=== PATIENT | male | born 1935 | race Caucasian/White ===

== ENCOUNTER 2021-07-14 18:05 | Outpatient (CLI) | payer MEDICARE, OTHER | END 2021-07-14 18:06 | disposition critical access hospital (66) | LOC: EMS 18:05 | DX: R42 Dizziness and giddiness (principal); R40.0 Somnolence | CPT/HCPCS: A0425; A0429 ==

== ENCOUNTER 2021-07-14 18:17 | Inpatient (IN) | payer MEDICARE, OTHER ==
[2021-07-14] MEDS ORDERED: ACETAMINOPHEN 325 MG TABLET PO STA (18:37)
--- NOTE | 2021-07-14 18:47 | ED Physician Documentation ---
History of Present Illness - Stated complaint Stated Complaint: DIZZINESS - Chief complaint Chief Complaint: Fever - History obtained from History obtained from: Patient, Family - Additonal information Additional information: 86-year-old gentleman who is generally healthy save a bad eye and narcolepsy. Had [employer] Covid vaccine about 5 weeks ago. Says he has been dizzy for maybe a week. says he has been very lethargic since yesterday. They did not know he was running a fever. He denies cough or shortness of breath. Review of Systems Ten Systems: 10 systems reviewed and negative Constitutional: reports: Chills, Myalgias Respiratory: denies: Dyspnea Neurologic: reports: Headache PD PAST MEDICAL HISTORY - Present Medications Home Medications: Ambulatory Orders Medication Instructions Recorded Confirmed Home Medications Unobtainable 07/14/21 07/14/21 [HOME MEDICATIONS UNOBTAINABLE] - Allergies Allergies/Adverse Reactions: Allergies Allergy/AdvReac Type Severity Reaction Status Date / Time No Known Drug Allergies Allergy Verified 07/14/21 18:32 PD ED PE NORMAL - Vitals Vital signs reviewed: Yes - General General: Alert and oriented X 3, No acute distress - HEENT HEENT: PERRL, EOMI - Neck Neck: Supple, no meningeal sign, No bony TTP - Cardiac Cardiac: RRR, No murmur - Respiratory Respiratory: No respiratory distress, Other (Rhonchorous at the right base, noted to be hypoxic) - Abdomen Abdomen: Non tender - Back Back: No CVA TTP, No spinal TTP - Derm Derm: Normal color, No rash - Extremities Extremities: No edema, No calf tenderness / cord - Neuro Neuro: Alert and oriented X 3, Normal speech Results - Vitals Vitals: Vital Signs - 24 hr 07/14/21 07/14/21 07/14/21 18:26 18:56 19:36 Temperature 39.0 C H 37.1 C Heart Rate 92 91 85 Respiratory 37 H 32 H 21 Rate Blood Pressure 122/80 133/64 H 133/73 H O2 Saturation 88 L 95 97 Oxygen O2 Source Nasal cannula Oxygen Flow Rate 2 - Labs Labs: Laboratory Tests 07/14/21 07/14/21 07/14/21 18:56 18:56 18:56 WBC 14.6 H RBC 3.84 L Hgb 10.9 L Hct 33.2 L MCV 86.5 MCH 28.4 MCHC 32.8 RDW 14.7 Plt Count 178 MPV 8.4 Neut # (Auto) 8.5 H Lymph # (Auto) 4.5 H Dixie # (Auto) 1.5 H Eos # (Auto) 0.0 Baso # (Auto) 0.0 Absolute Nucleated RBC 0.00 Nucleated RBC % 0.0 Sodium 131 L Potassium 3.8 Chloride 94 L Carbon Dioxide 24 Anion Gap 13.0 BUN 34 H Creatinine 1.2 Estimated GFR (MDRD) 58 L Glucose 128 H Lactic Acid 0.9 Calcium 9.1 Total Bilirubin 1.1 H AST 29 ALT 24 Alkaline Phosphatase 59 Total Protein 7.8 Albumin 3.8 Globulin 4.0 Albumin/Globulin Ratio 1.0 Urine Color Urine Clarity Urine pH Ur Specific [place] Urine Protein Urine Glucose (UA) Urine Ketones Urine Occult Blood Urine Nitrite Urine Bilirubin Urine Urobilinogen Ur Leukocyte Esterase Urine RBC Urine WBC Ur Squamous Epith Cells Urine Bacteria Urine Casts Urine Culture Comments Nasal Adenovirus (PCR) Nasal B. parapertussis DNA (PCR) Nasal Coronavir 229E PCR Nasal Coronavir HKU1 PCR Nasal Coronavir NL63 PCR Nasal Coronavir OC43 PCR Nasal Enterovir/Rhinovir PCR Nasal Influenza B PCR Nasal Influenza A PCR Nasal Parainfluen 1 PCR Nasal Parainfluen 2 PCR Nasal Parainfluen 3 PCR Nasal Parainfluen 4 PCR Nasal RSV (PCR) Nasal B.pertussis DNA PCR Nasal C.pneumoniae (PCR) David Human Metapneumo PCR Nasal M.pneumoniae (PCR) Nasal SARS-CoV-2 (PCR) 07/14/21 07/14/21 18:58 19:30 WBC RBC Hgb Hct MCV MCH MCHC RDW Plt Count MPV Neut # (Auto) Lymph # (Auto) [place] # (Auto) Eos # (Auto) Baso # (Auto) Absolute Nucleated RBC Nucleated RBC % Sodium Potassium Chloride Carbon Dioxide Anion Gap BUN Creatinine Estimated GFR (MDRD) Glucose Lactic Acid Calcium Total Bilirubin AST ALT Alkaline Phosphatase Total Protein Albumin Globulin Albumin/Globulin Ratio Urine Color YELLOW Urine Clarity CLEAR Urine pH 5.5 Ur Specific [place] 1.025 Urine Protein 100 H Urine Glucose (UA) NEGATIVE Urine Ketones NEGATIVE Urine Occult Blood TRACE-LYSE Urine Nitrite NEGATIVE Urine Bilirubin NEGATIVE Urine Urobilinogen 0.2 (NORMAL) Ur Leukocyte Esterase NEGATIVE Urine RBC 0-5 Urine WBC 0-3 Ur Squamous Epith Cells NONE SEEN Urine Bacteria None Seen Urine Casts 0-2 Hyaline Casts Urine Culture Comments NOT INDICATED Nasal Adenovirus (PCR) NOT DETECTED Nasal B. parapertussis DNA (PCR) NOT DETECTED Nasal Coronavir 229E PCR NOT DETECTED Nasal Coronavir HKU1 PCR NOT DETECTED Nasal Coronavir NL63 PCR NOT DETECTED Nasal Coronavir OC43 PCR NOT DETECTED Nasal Enterovir/Rhinovir PCR NOT DETECTED Nasal Influenza B PCR NOT DETECTED Nasal Influenza A PCR NOT DETECTED Nasal Parainfluen 1 PCR NOT DETECTED Nasal Parainfluen 2 PCR NOT DETECTED Nasal Parainfluen 3 PCR NOT DETECTED Nasal Parainfluen 4 PCR NOT DETECTED Nasal RSV (PCR) NOT DETECTED Nasal B.pertussis DNA PCR NOT DETECTED Nasal C.pneumoniae (PCR) NOT DETECTED David Human Metapneumo PCR NOT DETECTED Nasal M.pneumoniae (PCR) NOT DETECTED Nasal SARS-CoV-2 (PCR) NOT DETECTED - Rads (name of study) 1v cxr Radiology: EMP read contemporaneously (NAD) PD MEDICAL DECISION MAKING - ED course ED course: Relatively healthy 86-year-old gentleman presents with an acute encephalopathy fever, tachypnea, hypoxemia. Solid blood pressures and hemodynamics though. Clinically sounds like he has pneumonia at the right base. Covid test negative. Chest x-ray clear. Given sepsis physiology will treat as pneumonia, suspect chest x-ray will "bolton" Spoke with Dr. Pendleton for admission at 8:22 PM. He requested change of the antibiotics from Rocephin and Zithromax to Zosyn and Zithromax, based on the clinical location of the pneumonia he was concern for aspiration as opposed to simple community-acquired pneumonia. - Sepsis Event Sepsis Onset Date: 07/14/21 Sepsis Onset Time: 20:16 Current Stage of Sepsis: Sepsis Initial Hypotension: Not hypotensive Possible source of Sepsis: Pulmonary Mental/Cognitive Status: Lethargic, Change from baseline Reason for not giving 30ml/kg crystalloid fluids: Not in septic shock Capillary refill: Less than 2 seconds Peripheral Pulse Strength: 3+ Normal Peripheral Pulse Location: Radial Departure - Departure Disposition: 66 [facility] DC/Xfer Clinical Impression: Septicemia, Pneumonia Condition: Serious
[2021-07-14 19:01] LABS: BASOPHILS % (AUTO) 0.2 %; HCT - HEMATOCRIT 33.2 % (42.0-52.0); HGB - HEMOGLOBIN 10.9 g/dL (14.0-18.0); LYMPHOCYTES # (AUTO) 4.5 10^3/uL (1.5-3.5); LYMPHOCYTES % (AUTO) 30.8 %; MEAN CORPUSCULAR HEMOGLOBIN 28.4 pg (27.0-31.0); MEAN CORPUSCULAR HGB CONC 32.8 g/dL (32.0-36.0); MEAN CORPUSCULAR VOLUME 86.5 fL (80.0-94.0); MEAN PLATELET VOLUME 8.4 fL (7.4-11.4); MONOCYTES # (AUTO) 1.5 10^3/uL (0.0-1.0); MONOCYTES % (AUTO) 9.9 %; NEUTROPHILS # (AUTO) 8.5 10^3/uL (1.5-6.6); NEUTROPHILS % (AUTO) 58.3 %; PLT - PLATELET COUNT 178 10^3/uL (130-450); RED BLOOD COUNT 3.84 10^6/uL (4.70-6.10); RED CELL DISTRIBUTION WIDTH 14.7 % (12.0-15.0); WHITE BLOOD COUNT 14.6 x10^3/uL (4.8-10.8)
[2021-07-14 19:14] LABS: ALBUMIN 3.8 g/dL (3.2-5.5); BILIRUBIN,TOTAL 1.1 mg/dL (0.2-1.0); CALCIUM 9.1 mg/dL (8.5-10.3); CREATININE 1.2 mg/dL (0.6-1.2); POTASSIUM 3.8 mmol/L (3.5-5.0); TOTAL PROTEIN 7.8 g/dL (6.7-8.2)
[2021-07-14] MEDS ORDERED: SODIUM CHLORIDE 0.9% 1,000 ML IV STA (19:14)
--- NOTE | 2021-07-14 19:21 | XRAY Report ---
PROCEDURE: Chest 1 View X-Ray INDICATIONS: Fever TECHNIQUE: One view of the chest was acquired. COMPARISON: None FINDINGS: Surgical changes and devices: None. Lungs and pleura: No pleural effusions or pneumothorax. Lungs are clear. Mediastinum: Mediastinal contours appear normal. Heart size is normal. Bones and chest wall: No suspicious bony lesions. Overlying soft tissues appear unremarkable. IMPRESSION: No acute finding. Reviewed by: Jaspreet Strickland MD on 07/14/2021 7:20 PM PDT Approved by: Jaspreet Strickland MD on 07/14/2021 7:20 PM PDT Station ID: [id number]
[2021-07-14 19:43] LABS: BILIRUBIN,URINE NEGATIVE (NEGATIVE); GLUCOSE, URINE (UA) NEGATIVE (NEGATIVE); KETONES,URINE (UA) NEGATIVE (NEGATIVE); LEUKOCYTE ESTERASE, URINE NEGATIVE (NEGATIVE); NITRITE,URINE NEGATIVE (NEGATIVE); OCCULT BLOOD,URINE TRACE-LYSE (NEGATIVE); PH,URINE 5.5 PH (5.0-7.5); PROTEIN,URINE 100 mg/dL (NEGATIVE); UROBILINOGEN,URINE 0.2 (NORMAL) E.U./dL (NORMAL)
[2021-07-14 19:44] LABS: CLARITY,URINE CLEAR (CLEAR)
[2021-07-14 20:01] LABS: BACTERIA,URINE None Seen /HPF (None Seen); CASTS, URINE 0-2 Hyaline Casts /LPF; RBC,URINE 0-5 /HPF (0-5); SQUAMOUS EPITHELIAL CELL,UR NONE SEEN (<= Few); WBC,URINE 0-3 /HPF (0-3)
[2021-07-14 20:03] LABS: B. PARAPERTUSSIS- RESP PCR PAN NOT DETECTED; B. PERTUSSIS- RESP PCR PANEL NOT DETECTED; C. PNEUMONIAE- RESP PCR PANEL NOT DETECTED; CORONAVIRUS 229E-RESP PCR NOT DETECTED; CORONAVIRUS HKU1-RESP PCR NOT DETECTED; CORONAVIRUS NL63-RESP PCR NOT DETECTED; CORONAVIRUS OC43-RESP PCR NOT DETECTED; HUMAN METAPNEUMOVIRUS NOT DETECTED; INFLUENZA A- RESP PCR PANEL NOT DETECTED; INFLUENZA B - RESP PCR PANEL NOT DETECTED; M. PNEUMONIAE- RESP PCR PANEL NOT DETECTED; PARAINFLUENZA VIRUS 1 NOT DETECTED; PARAINFLUENZA VIRUS 2 NOT DETECTED; PARAINFLUENZA VIRUS 3 NOT DETECTED; PARAINFLUENZA VIRUS 4 NOT DETECTED; RHINOVIRUS/ENTEROVIRUS NOT DETECTED; RSV- RESP PCR PANEL NOT DETECTED; SARS-CoV-2 -RESP PCR PANEL NOT DETECTED
[2021-07-14] MEDS ORDERED: AZITHROMYCIN INJ 500 MG in SODIUM CHLORIDE 0.9% 250 ML IV STA (20:15)
[2021-07-14] MEDS ORDERED: cefTRIAXone 1 GM in SODIUM CHLORIDE 0.9% MINIBAG 100 ML IV STA (20:15)
[2021-07-14] MEDS ORDERED: PIPERACILLIN/TAZOBACTAM 3.375 GM in SODIUM CHLORIDE 0.9% MINIBAG 100 ML IV STA (20:22)
[2021-07-14] MEDS ORDERED: ONDANSETRON 4 MG/2 ML VIAL IVP PRN (20:52)
[2021-07-14] MEDS ORDERED: SODIUM CHLORIDE FLUSH 0.9% 10 ML SYRINGE IVP PRN (20:52)
--- NOTE | 2021-07-14 20:59 | HISTORY & PHYSICAL EXAMINATION ---
Chief Complaint - Chief Complaint Chief Complaint: confusion, dizziness, fever hypoxia History of Present Illness - Admitted From [facility] - History Obtained From Records Reviewed: yes History obtained from: patient - History of Present Illness HPI Comment/Other: Patient is an 86-year-old male with medical history significant for narcolepsy, BPH and hypertension. He is currently in [place] with his for the [employer]. They come from [facility]. It is reported that he was found slumped over in his car. His explains that he had gone to parked the car when they arrived the [place] shortly before he was found. It appears he readily came to but was intermittently/somewhat confused. Consequently EMS was called. He was noted to be febrile with a subjective temperature as high as 103F. He was brought to the ED for further evaluation. Upon arrival he was noted to have an oxygen saturation of 88% on room air. He was tachypneic with a respiratory rate of 36 and also had a temperature of 39 C. Further work-up included a CBC which showed white blood cell count of 14.6. He has crackles in the right lower lung base. Chest x-ray raise concern for pneumonia. On further inquiry the patient reports He has not been feeling well for the past 4 days. His also adds that he went to bed around 3 PM yesterday and slept for the rest of the day until today morning. At bedside he denies chest pain, abdominal pain, nausea, vomiting. He is being admitted for further treatment. History - Past Medical History Cardiovascular: reports: Hypertension Neuro: reports: Other (Narcolepsy) : reports: Benign prostate hypertrophy Other Past Medical History: narcolepsy - Past Surgical History General: reports: Appendectomy - Family & Social History Family History Comment/Other: Patient denies any significant family history. Social History Notes: He lives at home with his . He is independent of activities of daily living. He does not use tobacco products, recreational substances or alcohol - POLST Patient has POLST: No POLST Status: Full Code Meds/Allgy - Home Medications Home Medications: Ambulatory Orders Medication Instructions Recorded Confirmed Home Medications Unobtainable 07/14/21 07/14/21 [HOME MEDICATIONS UNOBTAINABLE] - Allergies Allergies/Adverse Reactions: Allergies Allergy/AdvReac Type Severity Reaction Status Date / Time No Known Drug Allergies Allergy Verified 07/14/21 18:32 Review of Systems - Constitutional Constitutional: reports: Fever, Chills, Malaise - Eyes Eyes: denies: Pain - Ears, Nose & Throat Ears, Nose & Throat: denies: Ear pain - Cardiovascular Cariovascular: denies: Irregular heart rate, Palpitations, Chest pain, Edema, Lightheadedness, Syncope - Respiratory Respiratory: denies: Cough, Sputum production, Wheezing, SOB at rest, SOB with exertion - Gastrointestinal Gastrointestinal: denies: Abdominal pain, Abdominal distention, Constipation, Nausea, Vomiting, Coffee grounds emesis - Genitourinary Genitourinary: reports: Frequency, Nocturia - Musculoskeletal Musculoskeletal: denies: Muscle pain, Back pain, Muscle aches - Integumentary Integumentary: denies: Rash, Pruritis, Lesions - Neurological Neurological: reports: General weakness, Dizziness. denies: Focal weakness - Psychiatric Psychiatric: denies: Depression, Anxiety - Endocrine Endocrine: denies: Polyuria, Polydypsia - Hematologic/Lymphatic Hematologic/Lymphatic: denies: Anemia, Bruising, Petechiae Prior Level of Functionality: He is normally independent of activities of daily living Exam - Vital Signs Vital Signs: Vital Signs x48h Temp Pulse Resp BP Pulse Ox 07/14/21 20:45 36.8 C 75 17 123/59 L 95 07/14/21 20:30 36.8 C 78 17 123/59 L 97 07/14/21 20:24 37.1 C 79 30 H 127/59 L 95 07/14/21 20:00 92 133/73 H 96 07/14/21 19:36 37.1 C 85 21 133/73 H 97 07/14/21 18:56 91 32 H 133/64 H 95 07/14/21 18:26 39.0 C H 92 37 H 122/80 88 L - Physical Exam General Appearance: positive: No acute distress, Alert Eyes Bilateral: positive: PERRL, EOMI ENT: positive: No signs of dehydration Neck: positive: No JVD, Trachea midline Respiratory: positive: Chest non-tender, No respiratory distress, Other (crackles on right lower lobes) Cardiovascular: positive: Regular rate & rhythm, No murmur Abdomen: positive: Non-tender, No organomegaly, Nml bowel sounds, No distention. negative: Guarding, Rebound Back: positive: Nml inspection Skin: positive: Color nml, No rash, Warm, Dry Extremities: positive: Non-tender, Full ROM, Nml appearance, No pedal edema Neurologic/Psychiatric: positive: Oriented x3, Mood/affect nml Sepsis Event Note (H) - Evaluation Possible source of Sepsis: positive: Pulmonary Conclusion/Plan - Problem List (1) Sepsis Conclusion/Plan: Secondary to a right lower lobe pneumonia. Blood cultures drawn. Patient is on supplemental oxygen. On Zosyn and azithromycin. Will continue. Tylenol as needed for fever. (2) Pneumonia Conclusion/Plan: Right lower lobe. Aspiration versus community-acquired. Blood cultures drawn. On Zosyn and azithromycin. On supplemental oxygen. (3) BPH (benign prostatic hyperplasia) Conclusion/Plan: Will resume patient's home medication once verified. (4) Hypertension Conclusion/Plan: Will resume his home medication once verified (5) Narcolepsy Conclusion/Plan: Will resume patient's home medication once verified. - Lab Results Fish Bones: 07/14/21 18:56 07/14/21 18:56 Core Measures - Anticipated LOS I expect patient to be DC'd or transferred within 96 hours.: Yes - DVT/VTE - Prophylaxis VTE/DVT Device ordered at admit?: Yes VTE/DVT Prophylaxis med ordered at admit?: Yes
[2021-07-15] MEDS: PIPERACILLIN/TAZOBACTAM 3.375 GM in SODIUM CHLORIDE 0.9% MINIBAG 100 ML IV SCH ×3 (01:19→15:53)
[2021-07-15] MEDS: SODIUM CHLORIDE FLUSH 0.9% 10 ML SYRINGE IVP SCH ×3 (01:20→15:53)
[2021-07-15] MEDS: ACETAMINOPHEN 325 MG TABLET PO PRN ×2 (05:30→14:23)
[2021-07-15 07:01] LABS: BASOPHILS % (AUTO) 0.2 %; EOSINOPHILS % (AUTO) 0.1 %; HGB - HEMOGLOBIN 10.4 g/dL (14.0-18.0); LYMPHOCYTES # (AUTO) 3.7 10^3/uL (1.5-3.5); LYMPHOCYTES % (AUTO) 30.6 %; MEAN CORPUSCULAR HEMOGLOBIN 28.1 pg (27.0-31.0); MEAN CORPUSCULAR HGB CONC 32.5 g/dL (32.0-36.0); MEAN CORPUSCULAR VOLUME 86.5 fL (80.0-94.0); MEAN PLATELET VOLUME 8.4 fL (7.4-11.4); MONOCYTES # (AUTO) 1.2 10^3/uL (0.0-1.0); MONOCYTES % (AUTO) 9.8 %; NEUTROPHILS # (AUTO) 7.1 10^3/uL (1.5-6.6); NEUTROPHILS % (AUTO) 58.6 %; PLT - PLATELET COUNT 177 10^3/uL (130-450); RED CELL DISTRIBUTION WIDTH 14.9 % (12.0-15.0); WHITE BLOOD COUNT 12.1 x10^3/uL (4.8-10.8)
[2021-07-15 07:15] LABS: CALCIUM 8.9 mg/dL (8.5-10.3); POTASSIUM 3.6 mmol/L (3.5-5.0)
--- NOTE | 2021-07-15 08:44 | PHARMACY PROGRESS NOTE ---
- Best Possible Medication History Admit Date and Time: 07/14/212051 Processed by: Pharmacy Medication History completed: Yes Patient Interview: Pt unable to participate Secondary Source(s): Physician records, Pharmacy records, Insurance records As the person ultimately responsible for medication therapy, providers are able to order a medication from an existing home medication list in [facility] via the "Reconcile Routine" prior to Confirmation of that medication by retail support manager. Such practice is discouraged except when the physician, in their clinical judgment, deems that a medical need exists for a medication without regard to previous use.
[2021-07-15] MEDS: ENOXAPARIN 40 MG/0.4 ML SYRINGE SUBQ SCH (09:44)
[2021-07-15] MEDS ORDERED: AMPHETAMINE PO PRN (13:03)
[2021-07-15] MEDS ORDERED: DEXTROAMPHETAMINE PO PRN (13:03)
--- NOTE | 2021-07-15 15:41 | PROVIDER PROGRESS NOTE ---
Assessment/Plan - Problem List (1) Sepsis Assessment/Plan: This patient presented with altered mental status, temperature greater than 39, elevated white count, respiratory rate of 37 and hypoxic. He did not have a cough and did not have elevated Lactic Acid. The source is pulmonary. He has been started on antibiotics and IV fluids (2) Pneumonia Qualifiers: Pneumonia type: aspiration pneumonia Assessment/Plan: He has been tired for 1 week, told our delinquency prevention social worker that he stopped taking in food a week ago because he felt so weak. 3 days ago he took an afternoon nap and slept the whole day. When asked why he decided to make the long trip and drive from [place] to [place] while feeling so bad, he he did not have an answer. His infiltrate is in the right middle lobe therefore suspect that this is aspiration but could also be a community-acquired pneumonia. He denied having a cough but possibly this is from dehydration from not taking in any food for a week Continue iv fluids He is on empiric Zosyn and Zithromax. Will start Mucinex to mobilize his secretions. Continue O2 supplemental keeping sats > 90% (3) BPH (benign prostatic hyperplasia) Assessment/Plan: He is on 2 medications for this. They have been resumed now that his list has been reconciled (4) Prostate cancer Assessment/Plan: As per history. (5) Hypertension Assessment/Plan: Will resume his Atenolol with hold parameters but not give HCTZ while he needs iv fluids. (6) Narcolepsy Assessment/Plan: Patient reports that he has had narcolepsy for 40 years and that he is ADHD medication has it under control. I commented that being tired from sepsis and this pneumonia probably worsened his fatigue because of his underlying narcolepsy. He was advised not to be driving home back to [place] when he is discharged in several days. Driving will be restricted until he is cleared to resume driving by his PCP. A DMV form was completed I also discussed these recommendations with his daughter Belle by phone today - Current Meds Current Meds: Current Medications Generic Name Dose Route Start Last Admin Trade Name Freq PRN Reason Stop Dose Admin Acetaminophen 650 mg 07/14/21 20:52 07/15/21 14:23 Acetaminophen 325 Mg Tablet PO 650 mg Q4HR PRN Administration Pain 1 to 4 Enoxaparin Sodium 40 mg 07/15/21 09:00 07/15/21 09:44 Enoxaparin 40 Mg/0.4 Ml Syringe SUBQ 40 mg DAILY DEYSI Administration Piperacillin Sod/Tazobactam 100 mls @ 25 mls/hr 07/15/21 00:00 07/15/21 11:40 Sod 3.375 gm/ Sodium Chloride IV Infused Q8H DEYSI Infusion Sodium Chloride 10 ml 07/15/21 01:00 07/15/21 07:40 Sodium Chloride Flush 0.9% 10 Ml Syringe IVP 10 ml 0100,0900,1700 DEYSI Administration - Lab Result Fish Bone Diagrams: 07/15/21 06:38 07/15/21 06:38 - Additional Planning My Orders: My Active Orders 07/15/21 08:20 CULTURE, BLOOD #1 [RM] Stat 07/15/21 09:09 CULTURE, BLOOD #2 [RM] Stat 07/15/21 13:03 Patient Own Controlled 1 each PO 5XD PRN 07/15/21 21:00 Atorvastatin [Lipitor] 20 mg PO QPM 07/16/21 09:00 Finasteride [Proscar] 5 mg PO DAILY Tamsulosin [Flomax] 0.8 mg PO DAILY atenoloL [Tenormin] 25 mg PO DAILY Subjective - Subjective Patient Reports: Resting Comfortably, Other (Still feels tired and foggy, no cough, no rigors) Objective Vital Signs: Vital Signs - 24 hr 07/14/21 07/14/21 07/14/21 18:26 18:56 19:36 Temperature 39.0 C H 37.1 C Heart Rate 92 91 85 Heart Rate [ Brachial] Respiratory 37 H 32 H 21 Rate Blood Pressure 122/80 133/64 H 133/73 H Blood Pressure [Right Brachial artery] O2 Saturation 88 L 95 97 07/14/21 07/14/21 07/14/21 20:00 20:24 20:30 Temperature 37.1 C 36.8 C Heart Rate 92 79 78 Heart Rate [ Brachial] Respiratory 30 H 17 Rate Blood Pressure 133/73 H 127/59 L 123/59 L Blood Pressure [Right Brachial artery] O2 Saturation 96 95 97 07/14/21 07/14/21 07/14/21 20:45 21:00 21:22 Temperature 36.8 C 36.9 C 36.8 C Heart Rate 75 73 Heart Rate [ 76 Brachial] Respiratory 17 18 17 Rate Blood Pressure 123/59 L 113/63 Blood Pressure 109/60 [Right Brachial artery] O2 Saturation 95 99 96 07/15/21 07/15/21 07/15/21 00:38 05:12 06:27 Temperature 36.5 C 39.0 C H 37.0 C Heart Rate Heart Rate [ 75 85 Brachial] Respiratory 20 21 Rate Blood Pressure Blood Pressure 123/65 125/65 [Right Brachial artery] O2 Saturation 100 97 07/15/21 07/15/21 07/15/21 06:55 08:27 14:15 Temperature 37.4 C 36.9 C 38.5 C H Heart Rate Heart Rate [ 70 92 Brachial] Respiratory 24 22 Rate Blood Pressure Blood Pressure 100/56 L 129/57 L [Right Brachial artery] O2 Saturation 95 92 Oxygen O2 Source Nasal cannula Oxygen Flow Rate 2 I&O (Last 24 Hrs): Intake and Output Totals x24h 07/13/21 07/14/21 07/15/21 23:59 23:59 23:59 Intake Total 1400.0 1496 Output Total 100 1615 Balance 1300.0 -119 General: Alert, Oriented x3, Other (Thin elderly white male, male pattern baldness, face is tanned) HEENT: Mucous membr. moist/pink Neck: Supple, No JVD Neuro: Alert, Non Focal Cardiovascular: Regular rate Respiratory: No respiratory distress, Rhonchi (R base) Abdomen: Normal bowel sounds, Soft Extremities: No clubbing, No edema - Results Results: Laboratory Results WBC 12.1 x10^3/uL (4.8-10.8) H 07/15/21 06:38 RBC 3.70 10^6/uL (4.70-6.10) L 07/15/21 06:38 Hgb 10.4 g/dL (14.0-18.0) L 07/15/21 06:38 Hct 32.0 % (42.0-52.0) L 07/15/21 06:38 MCV 86.5 fL (80.0-94.0) 07/15/21 06:38 MCH 28.1 pg (27.0-31.0) 07/15/21 06:38 MCHC 32.5 g/dL (32.0-36.0) 07/15/21 06:38 RDW 14.9 % (12.0-15.0) 07/15/21 06:38 Plt Count 177 10^3/uL (130-450) 07/15/21 06:38 MPV 8.4 fL (7.4-11.4) 07/15/21 06:38 Neut # (Auto) 7.1 10^3/uL (1.5-6.6) H 07/15/21 06:38 Lymph # (Auto) 3.7 10^3/uL (1.5-3.5) H 07/15/21 06:38 [place] # (Auto) 1.2 10^3/uL (0.0-1.0) H 07/15/21 06:38 Eos # (Auto) 0.0 10^3/uL (0.0-0.7) 07/15/21 06:38 Baso # (Auto) 0.0 10^3/uL (0.0-0.1) 07/15/21 06:38 Absolute Nucleated RBC 0.00 x10^3/uL 07/15/21 06:38 Nucleated RBC % 0.0 /100WBC 07/15/21 06:38 Sodium 136 mmol/L (135-145) 07/15/21 06:38 Potassium 3.6 mmol/L (3.5-5.0) 07/15/21 06:38 Chloride 99 mmol/L (101-111) L 07/15/21 06:38 Carbon Dioxide 24 mmol/L (21-32) 07/15/21 06:38 Anion Gap 13.0 (6-13) 07/15/21 06:38 BUN 29 mg/dL (6-20) H 07/15/21 06:38 Creatinine 1.0 mg/dL (0.6-1.2) 07/15/21 06:38 Estimated GFR (MDRD) 71 (>89) L 07/15/21 06:38 Glucose 113 mg/dL (70-100) H 07/15/21 06:38 Lactic Acid 0.9 mmol/L (0.5-2.2) 07/14/21 18:56 Calcium 8.9 mg/dL (8.5-10.3) 07/15/21 06:38 Total Bilirubin 1.1 mg/dL (0.2-1.0) H 07/14/21 18:56 AST 29 IU/L (10-42) 07/14/21 18:56 ALT 24 IU/L (10-60) 07/14/21 18:56 Alkaline Phosphatase 59 IU/L (42-121) 07/14/21 18:56 Total Protein 7.8 g/dL (6.7-8.2) 07/14/21 18:56 Albumin 3.8 g/dL (3.2-5.5) 07/14/21 18:56 Globulin 4.0 g/dL (2.1-4.2) 07/14/21 18:56 Albumin/Globulin Ratio 1.0 (1.0-2.2) 07/14/21 18:56 Urine Color YELLOW 07/14/21 19:30 Urine Clarity CLEAR (CLEAR) 07/14/21 19:30 Urine pH 5.5 PH (5.0-7.5) 07/14/21 19:30 Ur Specific [place] 1.025 (1.002-1.030) 07/14/21 19:30 Urine Protein 100 mg/dL (NEGATIVE) H 07/14/21 19:30 Urine Glucose (UA) NEGATIVE mg/dL (NEGATIVE) 07/14/21 19:30 Urine Ketones NEGATIVE mg/dL (NEGATIVE) 07/14/21 19:30 Urine Occult Blood TRACE-LYSE (NEGATIVE) 07/14/21 19:30 Urine Nitrite NEGATIVE (NEGATIVE) 07/14/21 19:30 Urine Bilirubin NEGATIVE (NEGATIVE) 07/14/21 19:30 Urine Urobilinogen 0.2 (NORMAL) E.U./dL (NORMAL) 07/14/21 19:30 Ur Leukocyte Esterase NEGATIVE (NEGATIVE) 07/14/21 19:30 Urine RBC 0-5 /HPF (0-5) 07/14/21 19:30 Urine WBC 0-3 /HPF (0-3) 07/14/21 19:30 Ur Squamous Epith Cells NONE SEEN (<= Few) 07/14/21 19:30 Urine Bacteria None Seen /HPF (None Seen) 07/14/21 19:30 Urine Casts 0-2 Hyaline Casts /LPF 07/14/21 19:30 Urine Culture Comments NOT INDICATED 07/14/21 19:30 Nasal Adenovirus (PCR) NOT DETECTED 07/14/21 18:58 Nasal B. parapertussis DNA (PCR) NOT DETECTED 07/14/21 18:58 Nasal Coronavir 229E PCR NOT DETECTED 07/14/21 18:58 Nasal Coronavir HKU1 PCR NOT DETECTED 07/14/21 18:58 Nasal Coronavir NL63 PCR NOT DETECTED 07/14/21 18:58 Nasal Coronavir OC43 PCR NOT DETECTED 07/14/21 18:58 Nasal Enterovir/Rhinovir PCR NOT DETECTED 07/14/21 18:58 Nasal Influenza B PCR NOT DETECTED 07/14/21 18:58 Nasal Influenza A PCR NOT DETECTED 07/14/21 18:58 Nasal Parainfluen 1 PCR NOT DETECTED 07/14/21 18:58 Nasal Parainfluen 2 PCR NOT DETECTED 07/14/21 18:58 Nasal Parainfluen 3 PCR NOT DETECTED 07/14/21 18:58 Nasal Parainfluen 4 PCR NOT DETECTED 07/14/21 18:58 Nasal RSV (PCR) NOT DETECTED 07/14/21 18:58 Nasal B.pertussis DNA PCR NOT DETECTED 07/14/21 18:58 Nasal C.pneumoniae (PCR) NOT DETECTED 07/14/21 18:58 David Human Metapneumo PCR NOT DETECTED 07/14/21 18:58 Nasal M.pneumoniae (PCR) NOT DETECTED 07/14/21 18:58 Nasal SARS-CoV-2 (PCR) NOT DETECTED 07/14/21 18:58 Sepsis Event Note (H) - Evaluation Possible source of Sepsis: positive: Pulmonary - Sepsis Criteria Sepsis Criteria: Recorded Temperature greater than 38.3C or Less than 36C, Recorded Respiratory Rate greater than 20, Respiratory: Increasing oxygen requirements, WBC count greater than 12,000 or less than 4000, CHECK WRITER: altered consciousness (unrelated to primary neuro pathology)
[2021-07-15] MEDS: ATORVASTATIN 10 MG TABLET PO SCH (20:36)
[2021-07-15] MEDS: AZITHROMYCIN INJ 500 MG in SODIUM CHLORIDE 0.9% 250 ML IV SCH (20:36)
[2021-07-16] MEDS: ACETAMINOPHEN 325 MG TABLET PO PRN ×2 (00:36→19:59)
[2021-07-16] MEDS: SODIUM CHLORIDE FLUSH 0.9% 10 ML SYRINGE IVP SCH ×4 (00:38→23:35)
[2021-07-16] MEDS: PIPERACILLIN/TAZOBACTAM 3.375 GM in SODIUM CHLORIDE 0.9% MINIBAG 100 ML IV SCH ×4 (00:47→23:34)
[2021-07-16 08:34] LABS: BASOPHILS % (AUTO) 0.3 %; EOSINOPHILS # (AUTO) 0.1 10^3/uL (0.0-0.7); EOSINOPHILS % (AUTO) 0.6 %; HCT - HEMATOCRIT 32.9 % (42.0-52.0); HGB - HEMOGLOBIN 10.5 g/dL (14.0-18.0); LYMPHOCYTES # (AUTO) 6.7 10^3/uL (1.5-3.5); LYMPHOCYTES % (AUTO) 46.8 %; MEAN CORPUSCULAR HEMOGLOBIN 27.9 pg (27.0-31.0); MEAN CORPUSCULAR HGB CONC 31.9 g/dL (32.0-36.0); MEAN CORPUSCULAR VOLUME 87.3 fL (80.0-94.0); MEAN PLATELET VOLUME 8.4 fL (7.4-11.4); MONOCYTES # (AUTO) 1.2 10^3/uL (0.0-1.0); MONOCYTES % (AUTO) 8.5 %; NEUTROPHILS # (AUTO) 6.1 10^3/uL (1.5-6.6); NEUTROPHILS % (AUTO) 42.7 %; PLT - PLATELET COUNT 192 10^3/uL (130-450); RED BLOOD COUNT 3.77 10^6/uL (4.70-6.10); RED CELL DISTRIBUTION WIDTH 14.8 % (12.0-15.0); WHITE BLOOD COUNT 14.2 x10^3/uL (4.8-10.8)
[2021-07-16] MEDS: atenoloL 25 MG TABLET PO SCH (08:42)
[2021-07-16] MEDS: FINASTERIDE 5 MG TABLET PO SCH (08:42)
[2021-07-16] MEDS: ENOXAPARIN 40 MG/0.4 ML SYRINGE SUBQ SCH (08:42)
[2021-07-16] MEDS: polyethylene glycoL 3350 17 GM PACKET PO SCH (08:42)
[2021-07-16] MEDS: TAMSULOSIN 0.4 MG CAPSULE PO SCH (08:42)
[2021-07-16 08:48] LABS: CALCIUM 8.5 mg/dL (8.5-10.3); POTASSIUM 3.7 mmol/L (3.5-5.0)
[2021-07-16 10:25] LABS: WBC MORPHOLOGY (MULTIPLE) 2+ REACTIVE LYMPHS (NORMAL)
[2021-07-16] MEDS ORDERED: MIN OIL/DIMETHICON/COCONUT OIL 92 GM TUBE TOP PRN (15:49)
--- NOTE | 2021-07-16 17:38 | PROVIDER PROGRESS NOTE ---
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 At mid week, he took an afternoon nap and slept the whole day. When asked why he decided to make the long trip and drive from [place] to [place] while feeling so bad, he did not have an answer. His infiltrate is in the right middle lobe therefore suspect that this is aspiration but could also be a community-acquired pneumonia. He denied having a cough but possibly this is from dehydration from not taking in any food for a week Continue iv fluids He is on empiric Zosyn and Zithromax. Continue Mucinex to mobilize his secretions. Continue O2 supplemental keeping sats > 90% Will ask PT to evaluate and keep working with him to prevent deconditioning (2) BPH (benign prostatic hyperplasia) Assessment/Plan: He is on 2 medications for this. They have been resumed now that his list has been reconciled (3) Prostate cancer Assessment/Plan: As per history. (4) Hypertension Assessment/Plan: We resumed his Atenolol with hold parameters but not giving HCTZ while he needs iv fluids. (5) Narcolepsy Assessment/Plan: Patient reports that he has had narcolepsy for 40 years and that his ADHD medication has it under control. I commented that being tired from sepsis and this pneumonia probably worsened his fatigue because of his underlying narcolepsy. He was advised not to be driving home back to [place] when he is discharged in several days. Driving will be restricted until he is cleared to resume driving by his PCP. A DMV form was completed I also discussed these recommendations with his daughter Belle by phone yesterday. (6) Sepsis Assessment/Plan: Resolved This patient presented with altered mental status, temperature greater than 39, elevated white count, respiratory rate of 37 and hypoxic. He did not have elevated Lactic Acid. The source is pulmonary. - Current Meds Current Meds: Current Medications Generic Name Dose Route Start Last Admin Trade Name Freq PRN Reason Stop Dose Admin Acetaminophen 650 mg 07/14/21 20:52 07/16/21 00:36 Acetaminophen 325 Mg Tablet PO 650 mg Q4HR PRN Administration Pain 1 to 4 Atenolol 25 mg 07/16/21 09:00 07/16/21 08:42 Atenolol 25 Mg Tablet PO 25 mg DAILY DEYSI Administration Atorvastatin Calcium 20 mg 07/15/21 21:00 07/15/21 20:36 Atorvastatin 10 Mg Tablet PO 20 mg QPM DEYSI Administration Enoxaparin Sodium 40 mg 07/15/21 09:00 07/16/21 08:42 Enoxaparin 40 Mg/0.4 Ml Syringe SUBQ 40 mg DAILY DEYSI Administration Finasteride 5 mg 07/16/21 09:00 07/16/21 08:42 Finasteride 5 Mg Tablet PO 5 mg DAILY DEYSI Administration Piperacillin Sod/Tazobactam 100 mls @ 25 mls/hr 07/15/21 00:00 07/16/21 15:51 Sod 3.375 gm/ Sodium Chloride IV 25 mls/hr Q8H DEYSI Administration Azithromycin 500 mg/ Sodium 250 mls @ 250 mls/hr 07/15/21 21:00 07/15/21 21:36 Chloride IV 07/16/21 21:59 Infused Q24H DEYSI Infusion Polyethylene Glycol 17 gm 07/16/21 09:00 07/16/21 08:42 Polyethylene Glycol 3350 17 Gm Packet PO 17 gm DAILY DEYSI Administration Sodium Chloride 10 ml 07/15/21 01:00 07/16/21 15:52 Sodium Chloride Flush 0.9% 10 Ml Syringe IVP 10 ml 0100,0900,1700 DEYSI Administration Tamsulosin HCl 0.8 mg 07/16/21 09:00 07/16/21 08:42 Tamsulosin 0.4 Mg Capsule PO 0.8 mg DAILY DEYSI Administration - Lab Result Fish Bone Diagrams: 07/16/21 08:03 07/16/21 08:03 - Additional Planning My Orders: My Active Orders 07/15/21 21:00 Atorvastatin [Lipitor] 20 mg PO QPM 07/16/21 Evaluate and Treat PT [PT] Routine 07/16/21 09:00 Finasteride [Proscar] 5 mg PO DAILY Tamsulosin [Flomax] 0.8 mg PO DAILY atenoloL [Tenormin] 25 mg PO DAILY Subjective - Subjective Patient Reports: Feeling Better, Resting Comfortably, No Complaints Objective Vital Signs: Vital Signs - 24 hr 07/15/21 07/16/21 07/16/21 20:50 00:06 02:02 Temperature 37.0 C 37.3 C 36.6 C Heart Rate [ 82 89 Brachial] Respiratory 20 26 H 21 Rate Blood Pressure 121/56 L 129/70 [Right Brachial artery] O2 Saturation 99 91 L 96 07/16/21 07/16/21 07/16/21 05:27 09:00 13:00 Temperature 36.5 C 36.6 C 38.0 C H Heart Rate [ 72 75 82 Brachial] Respiratory 21 20 22 Rate Blood Pressure 124/68 115/64 116/58 L [Right Brachial artery] O2 Saturation 95 93 95 07/16/21 16:10 Temperature 37.8 C Heart Rate [ 87 Brachial] Respiratory 20 Rate Blood Pressure 116/59 L [Right Brachial artery] O2 Saturation 94 Oxygen O2 Source Room air Oxygen Flow Rate 2 I&O (Last 24 Hrs): Intake and Output Totals x24h 07/14/21 07/15/21 07/16/21 23:59 23:59 23:59 Intake Total 1400.0 2086 1120 Output Total 100 1865 750 Balance 1300.0 221 370 General: Alert, Oriented x3 HEENT: Mucous membr. moist/pink Neck: Supple, No JVD Neuro: Alert, Non Focal Cardiovascular: Regular rate, No murmurs Respiratory: No respiratory distress, Rhonchi (R base) Abdomen: Normal bowel sounds, Soft Extremities: No clubbing, No edema - Results Results: Laboratory Results WBC 14.2 x10^3/uL (4.8-10.8) H 07/16/21 08:03 RBC 3.77 10^6/uL (4.70-6.10) L 07/16/21 08:03 Hgb 10.5 g/dL (14.0-18.0) L 07/16/21 08:03 Hct 32.9 % (42.0-52.0) L 07/16/21 08:03 MCV 87.3 fL (80.0-94.0) 07/16/21 08:03 MCH 27.9 pg (27.0-31.0) 07/16/21 08:03 MCHC 31.9 g/dL (32.0-36.0) L 07/16/21 08:03 RDW 14.8 % (12.0-15.0) 07/16/21 08:03 Plt Count 192 10^3/uL (130-450) 07/16/21 08:03 MPV 8.4 fL (7.4-11.4) 07/16/21 08:03 Neut # (Auto) 6.1 10^3/uL (1.5-6.6) 07/16/21 08:03 Lymph # (Auto) 6.7 10^3/uL (1.5-3.5) H 07/16/21 08:03 [place] # (Auto) 1.2 10^3/uL (0.0-1.0) H 07/16/21 08:03 Eos # (Auto) 0.1 10^3/uL (0.0-0.7) 07/16/21 08:03 Baso # (Auto) 0.0 10^3/uL (0.0-0.1) 07/16/21 08:03 Absolute Nucleated RBC 0.00 x10^3/uL 07/16/21 08:03 Nucleated RBC % 0.0 /100WBC 07/16/21 08:03 WBC Morphology 2+ REACTIVE LYMPHS (NORMAL) 07/16/21 08:03 Sodium 132 mmol/L (135-145) L 07/16/21 08:03 Potassium 3.7 mmol/L (3.5-5.0) 07/16/21 08:03 Chloride 97 mmol/L (101-111) L 07/16/21 08:03 Carbon Dioxide 25 mmol/L (21-32) 07/16/21 08:03 Anion Gap 10.0 (6-13) 07/16/21 08:03 BUN 23 mg/dL (6-20) H 07/16/21 08:03 Creatinine 1.0 mg/dL (0.6-1.2) 07/16/21 08:03 Estimated GFR (MDRD) 71 (>89) L 07/16/21 08:03 Glucose 124 mg/dL (70-100) H 07/16/21 08:03 Lactic Acid 0.9 mmol/L (0.5-2.2) 07/14/21 18:56 Calcium 8.5 mg/dL (8.5-10.3) 07/16/21 08:03 Total Bilirubin 1.1 mg/dL (0.2-1.0) H 07/14/21 18:56 AST 29 IU/L (10-42) 07/14/21 18:56 ALT 24 IU/L (10-60) 07/14/21 18:56 Alkaline Phosphatase 59 IU/L (42-121) 07/14/21 18:56 Total Protein 7.8 g/dL (6.7-8.2) 07/14/21 18:56 Albumin 3.8 g/dL (3.2-5.5) 07/14/21 18:56 Globulin 4.0 g/dL (2.1-4.2) 07/14/21 18:56 Albumin/Globulin Ratio 1.0 (1.0-2.2) 07/14/21 18:56 Urine Color YELLOW 07/14/21 19:30 Urine Clarity CLEAR (CLEAR) 07/14/21 19:30 Urine pH 5.5 PH (5.0-7.5) 07/14/21 19:30 Ur Specific [place] 1.025 (1.002-1.030) 07/14/21 19:30 Urine Protein 100 mg/dL (NEGATIVE) H 07/14/21 19:30 Urine Glucose (UA) NEGATIVE mg/dL (NEGATIVE) 07/14/21 19:30 Urine Ketones NEGATIVE mg/dL (NEGATIVE) 07/14/21 19:30 Urine Occult Blood TRACE-LYSE (NEGATIVE) 07/14/21 19:30 Urine Nitrite NEGATIVE (NEGATIVE) 07/14/21 19:30 Urine Bilirubin NEGATIVE (NEGATIVE) 07/14/21 19:30 Urine Urobilinogen 0.2 (NORMAL) E.U./dL (NORMAL) 07/14/21 19:30 Ur Leukocyte Esterase NEGATIVE (NEGATIVE) 07/14/21 19:30 Urine RBC 0-5 /HPF (0-5) 07/14/21 19:30 Urine WBC 0-3 /HPF (0-3) 07/14/21 19:30 Ur Squamous Epith Cells NONE SEEN (<= Few) 07/14/21 19:30 Urine Bacteria None Seen /HPF (None Seen) 07/14/21 19:30 Urine Casts 0-2 Hyaline Casts /LPF 07/14/21 19:30 Urine Culture Comments NOT INDICATED 07/14/21 19:30 Nasal Adenovirus (PCR) NOT DETECTED 07/14/21 18:58 Nasal B. parapertussis DNA (PCR) NOT DETECTED 07/14/21 18:58 Nasal Coronavir 229E PCR NOT DETECTED 07/14/21 18:58 Nasal Coronavir HKU1 PCR NOT DETECTED 07/14/21 18:58 Nasal Coronavir NL63 PCR NOT DETECTED 07/14/21 18:58 Nasal Coronavir OC43 PCR NOT DETECTED 07/14/21 18:58 Nasal Enterovir/Rhinovir PCR NOT DETECTED 07/14/21 18:58 Nasal Influenza B PCR NOT DETECTED 07/14/21 18:58 Nasal Influenza A PCR NOT DETECTED 07/14/21 18:58 Nasal Parainfluen 1 PCR NOT DETECTED 07/14/21 18:58 Nasal Parainfluen 2 PCR NOT DETECTED 07/14/21 18:58 Nasal Parainfluen 3 PCR NOT DETECTED 07/14/21 18:58 Nasal Parainfluen 4 PCR NOT DETECTED 07/14/21 18:58 Nasal RSV (PCR) NOT DETECTED 07/14/21 18:58 Nasal B.pertussis DNA PCR NOT DETECTED 07/14/21 18:58 Nasal C.pneumoniae (PCR) NOT DETECTED 07/14/21 18:58 David Human Metapneumo PCR NOT DETECTED 07/14/21 18:58 Nasal M.pneumoniae (PCR) NOT DETECTED 07/14/21 18:58 Nasal SARS-CoV-2 (PCR) NOT DETECTED 07/14/21 18:58 Sepsis Event Note (H) - Evaluation Possible source of Sepsis: positive: Pulmonary - Sepsis Criteria Sepsis Criteria: Recorded Temperature greater than 38.3C or Less than 36C, Recorded Respiratory Rate greater than 20, Respiratory: Increasing oxygen requirements, WBC count greater than 12,000 or less than 4000, PHLEBOTOMY SPECIALIST: altered consciousness (unrelated to primary neuro pathology)
[2021-07-16] MEDS: ATORVASTATIN 10 MG TABLET PO SCH (20:01)
[2021-07-16] MEDS: AZITHROMYCIN INJ 500 MG in SODIUM CHLORIDE 0.9% 250 ML IV SCH (20:03)
[2021-07-17 06:25] LABS: BASOPHILS % (AUTO) 0.4 %; EOSINOPHILS # (AUTO) 0.2 10^3/uL (0.0-0.7); EOSINOPHILS % (AUTO) 1.9 %; HCT - HEMATOCRIT 31.9 % (42.0-52.0); LYMPHOCYTES # (AUTO) 5.5 10^3/uL (1.5-3.5); LYMPHOCYTES % (AUTO) 53.3 %; MEAN CORPUSCULAR HEMOGLOBIN 27.6 pg (27.0-31.0); MEAN CORPUSCULAR HGB CONC 31.3 g/dL (32.0-36.0); MEAN CORPUSCULAR VOLUME 88.1 fL (80.0-94.0); MEAN PLATELET VOLUME 8.6 fL (7.4-11.4); MONOCYTES # (AUTO) 0.9 10^3/uL (0.0-1.0); MONOCYTES % (AUTO) 8.2 %; NEUTROPHILS # (AUTO) 3.6 10^3/uL (1.5-6.6); NEUTROPHILS % (AUTO) 35.1 %; PLT - PLATELET COUNT 170 10^3/uL (130-450); RED BLOOD COUNT 3.62 10^6/uL (4.70-6.10); RED CELL DISTRIBUTION WIDTH 14.8 % (12.0-15.0); WHITE BLOOD COUNT 10.4 x10^3/uL (4.8-10.8)
[2021-07-17 06:35] LABS: CALCIUM 8.7 mg/dL (8.5-10.3); POTASSIUM 3.5 mmol/L (3.5-5.0)
[2021-07-17] MEDS: SODIUM CHLORIDE FLUSH 0.9% 10 ML SYRINGE IVP SCH ×3 (08:44→23:47)
[2021-07-17] MEDS: PIPERACILLIN/TAZOBACTAM 3.375 GM in SODIUM CHLORIDE 0.9% MINIBAG 100 ML IV SCH ×3 (08:45→23:47)
[2021-07-17] MEDS: atenoloL 25 MG TABLET PO SCH (09:02)
[2021-07-17] MEDS: ENOXAPARIN 40 MG/0.4 ML SYRINGE SUBQ SCH (09:02)
[2021-07-17] MEDS: TAMSULOSIN 0.4 MG CAPSULE PO SCH (09:02)
[2021-07-17] MEDS: polyethylene glycoL 3350 17 GM PACKET PO SCH (09:02)
[2021-07-17] MEDS: FINASTERIDE 5 MG TABLET PO SCH (09:02)
[2021-07-17 11:22] LABS: PLATELET ESTIMATE, MANUAL NORMAL (130-450,000) (NORMAL); PLATELET MORPHOLOGY NORMAL APPEARANCE (NORMAL); RBC MORPHOLOGY (MULTIPLE) NORMAL APPEARANCE (NORMAL); WBC MORPHOLOGY (MULTIPLE) NORMAL APPEARANCE (NORMAL)
[2021-07-17 11:23] LABS: DIFFERENTIAL COMMENT MANUAL=AUTO DIFF
--- NOTE | 2021-07-17 16:49 | PROVIDER PROGRESS NOTE ---
Assessment/Plan - Problem List (1) Pneumonia Qualifiers: Pneumonia type: aspiration pneumonia Assessment/Plan: This is either a community-acquired pneumonia or aspiration pneumonia (because of the location) Continue with empiric IV antibiotics. Patient made no sputum to send for culture. Await final results of blood cultures, which are negative to date. He is still needing O2 2 L nasal cannula. Will start to wean this down to room air. He will probably be ready for discharge tomorrow and should have several more days of oral antibiotics. The daughter was allowed to enter the room along with the mother (2 visitors OKd). I updated the daughter on this entire plan (2) Prerenal azotemia Assessment/Plan: This is likely from sepsis and he admitted to not eating or drinking for about 1 week (he described taking only small snacks multiple times throughout the day for 1 week because if he took large meals they would "burn through his stomach and he would be sleepy afterwards"). He has received IV fluids since admission, this improved his sepsis and his altered mental status (somnolence). He still has prerenal azotemia and will continue with IV fluids today. Follow BMP daily (3) BPH (benign prostatic hyperplasia) Assessment/Plan: He is on 2 medications for his prostate and these have both been continued (4) Prostate cancer Assessment/Plan: As per Hx (5) Anemia Assessment/Plan: Hemoglobin is down to 10. I suspect this is hemodilutional. We will check B12, folate levels and iron stores and replace if low (6) Narcolepsy Assessment/Plan: Patient reports that he has had narcolepsy "for 40 years and that his ADHD medication has it under control". I commented that being tired from sepsis and this pneumonia probably worsened his fatigue, because of his underlying narcolepsy. He was advised not to be driving home back to [place] when he is discharged in . The daughter arrived from [place] and plans to drive her father and mother home. Driving will be restricted until he is cleared to resume driving by his PCP. A DMV form was completed. I informed the daughter Belle. (7) Hypertension Assessment/Plan: His blood pressure meds were not initially resumed because of "soft" blood pressure and needing IV fluids. (8) Sepsis Assessment/Plan: Resolved, lactic acid has normalized, WBC also down. This patient presented with altered mental status, temperature greater than 39, elevated white count, respiratory rate of 37 and hypoxic. - Current Meds Current Meds: Current Medications Generic Name Dose Route Start Last Admin Trade Name Freq PRN Reason Stop Dose Admin Acetaminophen 650 mg 07/14/21 20:52 07/16/21 19:59 Acetaminophen 325 Mg Tablet PO 650 mg Q4HR PRN Administration Pain 1 to 4 Atenolol 25 mg 07/16/21 09:00 07/17/21 09:02 Atenolol 25 Mg Tablet PO 25 mg DAILY DEYSI Administration Atorvastatin Calcium 20 mg 07/15/21 21:00 07/16/21 20:01 Atorvastatin 10 Mg Tablet PO 20 mg QPM DEYSI Administration Enoxaparin Sodium 40 mg 07/15/21 09:00 07/17/21 09:02 Enoxaparin 40 Mg/0.4 Ml Syringe SUBQ 40 mg DAILY DEYSI Administration Finasteride 5 mg 07/16/21 09:00 07/17/21 09:02 Finasteride 5 Mg Tablet PO 5 mg DAILY DEYSI Administration Piperacillin Sod/Tazobactam 100 mls @ 25 mls/hr 07/15/21 00:00 07/17/21 16:15 Sod 3.375 gm/ Sodium Chloride IV 25 mls/hr Q8H DEYSI Administration Mineral Oil 1 applic 07/16/21 15:49 07/16/21 23:35 Min Oil/Dimethicon/Coconut Oil 92 Gm Tube TOP 1 applic PRN PRN Administration Skin Care Polyethylene Glycol 17 gm 07/16/21 09:00 07/17/21 09:02 Polyethylene Glycol 3350 17 Gm Packet PO 17 gm DAILY DEYSI Administration Sodium Chloride 10 ml 07/15/21 01:00 07/17/21 08:44 Sodium Chloride Flush 0.9% 10 Ml Syringe IVP 10 ml 0100,0900,1700 DEYSI Administration Tamsulosin HCl 0.8 mg 07/16/21 09:00 07/17/21 09:02 Tamsulosin 0.4 Mg Capsule PO 0.8 mg DAILY DEYSI Administration - Lab Result Fish Bone Diagrams: 07/17/21 05:55 07/17/21 05:55 - Additional Planning My Orders: My Active Orders 07/17/21 10:44 Miscellaenous Nursing Order [RC] QSHIFT Subjective - Subjective Patient Reports: Feeling Better, Other (Has good appetite) Objective Vital Signs: Vital Signs - 24 hr 07/16/21 07/16/21 07/16/21 20:19 23:39 23:53 Temperature 36.4 C L 36.9 C Heart Rate [ 76 68 Brachial] Respiratory 20 18 Rate Blood Pressure 114/80 110/59 L [Right Brachial artery] O2 Saturation 95 97 97 07/17/21 07/17/21 07/17/21 05:34 09:00 11:40 Temperature 36.8 C 36.4 C L Heart Rate [ 63 65 Brachial] Respiratory 22 16 Rate Blood Pressure 109/58 L 119/59 L [Right Brachial artery] O2 Saturation 97 98 98 07/17/21 07/17/21 07/17/21 11:46 11:48 12:37 Temperature Heart Rate [ Brachial] Respiratory Rate Blood Pressure [Right Brachial artery] O2 Saturation 97 97 97 07/17/21 07/17/21 13:00 15:47 Temperature 36.9 C 36.8 C Heart Rate [ 65 66 Brachial] Respiratory 17 18 Rate Blood Pressure 108/56 L 108/52 L [Right Brachial artery] O2 Saturation 98 99 Oxygen O2 Source Room air Oxygen Flow Rate 2 I&O (Last 24 Hrs): Intake and Output Totals x24h 07/15/21 07/16/21 07/17/21 23:59 23:59 23:59 Intake Total 2085 2009 680 Output Total 1865 750 Balance 221 1260 680 General: Alert, Oriented x3 HEENT: Mucous membr. moist/pink Neck: Supple, No JVD Neuro: Alert, Non Focal Cardiovascular: Regular rate, No murmurs Respiratory: No respiratory distress, Rhonchi Abdomen: Normal bowel sounds, Soft Extremities: No clubbing, No edema - Results Results: Laboratory Results WBC 10.4 x10^3/uL (4.8-10.8) 07/17/21 05:55 RBC 3.62 10^6/uL (4.70-6.10) L 07/17/21 05:55 Hgb 10.0 g/dL (14.0-18.0) L 07/17/21 05:55 Hct 31.9 % (42.0-52.0) L 07/17/21 05:55 MCV 88.1 fL (80.0-94.0) 07/17/21 05:55 MCH 27.6 pg (27.0-31.0) 07/17/21 05:55 MCHC 31.3 g/dL (32.0-36.0) L 07/17/21 05:55 RDW 14.8 % (12.0-15.0) 07/17/21 05:55 Plt Count 170 10^3/uL (130-450) 07/17/21 05:55 MPV 8.6 fL (7.4-11.4) 07/17/21 05:55 Neut # (Auto) 3.6 10^3/uL (1.5-6.6) 07/17/21 05:55 Lymph # (Auto) 5.5 10^3/uL (1.5-3.5) H 07/17/21 05:55 [place] # (Auto) 0.9 10^3/uL (0.0-1.0) 07/17/21 05:55 Eos # (Auto) 0.2 10^3/uL (0.0-0.7) 07/17/21 05:55 Baso # (Auto) 0.0 10^3/uL (0.0-0.1) 07/17/21 05:55 Absolute Nucleated RBC 0.00 x10^3/uL 07/17/21 05:55 Band Neuts % (Manual) Not Reportable 07/17/21 05:55 Abnorm Lymph % (Manual) Not Reportable 07/17/21 05:55 Nucleated RBC % 0.0 /100WBC 07/17/21 05:55 Neutrophils # (Manual) Not Reportable 07/17/21 05:55 Lymphocytes # (Manual) Not Reportable 07/17/21 05:55 Monocytes # (Manual) Not Reportable 07/17/21 05:55 Eosinophils # (Manual) Not Reportable 07/17/21 05:55 Basophils # (Manual) Not Reportable 07/17/21 05:55 Differential Comment MANUAL=AUTO DIFF 07/17/21 05:55 WBC Morphology NORMAL APPEARANCE (NORMAL) 07/17/21 05:55 Platelet Estimate NORMAL (130-450,000) (NORMAL) 07/17/21 05:55 Platelet Morphology NORMAL APPEARANCE (NORMAL) 07/17/21 05:55 RBC Morph Micro Appear NORMAL APPEARANCE (NORMAL) 07/17/21 05:55 Sodium 138 mmol/L (135-145) 07/17/21 05:55 Potassium 3.5 mmol/L (3.5-5.0) 07/17/21 05:55 Chloride 102 mmol/L (101-111) 07/17/21 05:55 Carbon Dioxide 27 mmol/L (21-32) 07/17/21 05:55 Anion Gap 9.0 (6-13) 07/17/21 05:55 BUN 23 mg/dL (6-20) H 07/17/21 05:55 Creatinine 1.0 mg/dL (0.6-1.2) 07/17/21 05:55 Estimated GFR (MDRD) 71 (>89) L 07/17/21 05:55 Glucose 107 mg/dL (70-100) H 07/17/21 05:55 Lactic Acid 0.9 mmol/L (0.5-2.2) 07/14/21 18:56 Calcium 8.7 mg/dL (8.5-10.3) 07/17/21 05:55 Total Bilirubin 1.1 mg/dL (0.2-1.0) H 07/14/21 18:56 AST 29 IU/L (10-42) 07/14/21 18:56 ALT 24 IU/L (10-60) 07/14/21 18:56 Alkaline Phosphatase 59 IU/L (42-121) 07/14/21 18:56 Total Protein 7.8 g/dL (6.7-8.2) 07/14/21 18:56 Albumin 3.8 g/dL (3.2-5.5) 07/14/21 18:56 Globulin 4.0 g/dL (2.1-4.2) 07/14/21 18:56 Albumin/Globulin Ratio 1.0 (1.0-2.2) 07/14/21 18:56 Urine Color YELLOW 07/14/21 19:30 Urine Clarity CLEAR (CLEAR) 07/14/21 19:30 Urine pH 5.5 PH (5.0-7.5) 07/14/21 19:30 Ur Specific [place] 1.025 (1.002-1.030) 07/14/21 19:30 Urine Protein 100 mg/dL (NEGATIVE) H 07/14/21 19:30 Urine Glucose (UA) NEGATIVE mg/dL (NEGATIVE) 07/14/21 19:30 Urine Ketones NEGATIVE mg/dL (NEGATIVE) 07/14/21 19:30 Urine Occult Blood TRACE-LYSE (NEGATIVE) 07/14/21 19:30 Urine Nitrite NEGATIVE (NEGATIVE) 07/14/21 19:30 Urine Bilirubin NEGATIVE (NEGATIVE) 07/14/21 19:30 Urine Urobilinogen 0.2 (NORMAL) E.U./dL (NORMAL) 07/14/21 19:30 Ur Leukocyte Esterase NEGATIVE (NEGATIVE) 07/14/21 19:30 Urine RBC 0-5 /HPF (0-5) 07/14/21 19:30 Urine WBC 0-3 /HPF (0-3) 07/14/21 19:30 Ur Squamous Epith Cells NONE SEEN (<= Few) 07/14/21 19:30 Urine Bacteria None Seen /HPF (None Seen) 07/14/21 19:30 Urine Casts 0-2 Hyaline Casts /LPF 07/14/21 19:30 Urine Culture Comments NOT INDICATED 07/14/21 19:30 Nasal Adenovirus (PCR) NOT DETECTED 07/14/21 18:58 Nasal B. parapertussis DNA (PCR) NOT DETECTED 07/14/21 18:58 Nasal Coronavir 229E PCR NOT DETECTED 07/14/21 18:58 Nasal Coronavir HKU1 PCR NOT DETECTED 07/14/21 18:58 Nasal Coronavir NL63 PCR NOT DETECTED 07/14/21 18:58 Nasal Coronavir OC43 PCR NOT DETECTED 07/14/21 18:58 Nasal Enterovir/Rhinovir PCR NOT DETECTED 07/14/21 18:58 Nasal Influenza B PCR NOT DETECTED 07/14/21 18:58 Nasal Influenza A PCR NOT DETECTED 07/14/21 18:58 Nasal Parainfluen 1 PCR NOT DETECTED 07/14/21 18:58 Nasal Parainfluen 2 PCR NOT DETECTED 07/14/21 18:58 Nasal Parainfluen 3 PCR NOT DETECTED 07/14/21 18:58 Nasal Parainfluen 4 PCR NOT DETECTED 07/14/21 18:58 Nasal RSV (PCR) NOT DETECTED 07/14/21 18:58 Nasal B.pertussis DNA PCR NOT DETECTED 07/14/21 18:58 Nasal C.pneumoniae (PCR) NOT DETECTED 07/14/21 18:58 David Human Metapneumo PCR NOT DETECTED 07/14/21 18:58 Nasal M.pneumoniae (PCR) NOT DETECTED 07/14/21 18:58 Nasal SARS-CoV-2 (PCR) NOT DETECTED 07/14/21 18:58 Sepsis Event Note (H) - Evaluation Possible source of Sepsis: positive: Pulmonary - Sepsis Criteria Sepsis Criteria: Recorded Temperature greater than 38.3C or Less than 36C, Recorded Respiratory Rate greater than 20, Respiratory: Increasing oxygen requirements, WBC count greater than 12,000 or less than 4000, SAMPLER AND TEST PREPARER: altered consciousness (unrelated to primary neuro pathology)
[2021-07-17] MEDS: ATORVASTATIN 10 MG TABLET PO SCH (20:31)
[2021-07-18 06:00] LABS: BASOPHILS % (AUTO) 0.3 %; EOSINOPHILS % (AUTO) 2.5 %; HCT - HEMATOCRIT 29.6 % (42.0-52.0); HGB - HEMOGLOBIN 9.3 g/dL (14.0-18.0); LYMPHOCYTES % (AUTO) 60.6 %; MEAN CORPUSCULAR HEMOGLOBIN 27.5 pg (27.0-31.0); MEAN CORPUSCULAR HGB CONC 31.4 g/dL (32.0-36.0); MEAN CORPUSCULAR VOLUME 87.6 fL (80.0-94.0); MEAN PLATELET VOLUME 8.3 fL (7.4-11.4); MONOCYTES % (AUTO) 6.8 %; NEUTROPHILS % (AUTO) 28.1 %; PLT - PLATELET COUNT 181 10^3/uL (130-450); RED BLOOD COUNT 3.38 10^6/uL (4.70-6.10); RED CELL DISTRIBUTION WIDTH 14.6 % (12.0-15.0); WHITE BLOOD COUNT 10.3 x10^3/uL (4.8-10.8)
[2021-07-18 06:04] LABS: ABNORMAL LYMPHS % (MANUAL) 0 %; BAND NEUTROPHILS % (MANUAL) 0 %
[2021-07-18 06:20] LABS: CALCIUM 8.5 mg/dL (8.5-10.3); CREATININE 0.9 mg/dL (0.6-1.2); EOSINOPHILS # (MANUAL) 0.3 10^3/uL (0-0.7); LYMPHOCYTES # (MANUAL) 6.7 10^3/uL (1.5-3.5); LYMPHOCYTES % (MANUAL) 65 %; MAGNESIUM 2.1 mg/dL (1.7-2.8); MONOCYTES # (MANUAL) 0.3 10^3/uL (0.0-1.0); MYELOCYTES % (MANUAL) 3 %; NEUTROPHILS # (MANUAL) 2.7 10^3/uL (1.5-6.6); PLATELET MORPHOLOGY NORMAL APPEARANCE (NORMAL); POTASSIUM 3.5 mmol/L (3.5-5.0); RBC MORPHOLOGY (MULTIPLE) NORMAL APPEARANCE (NORMAL)
[2021-07-18 06:21] LABS: DIFFERENTIAL COMMENT MANUAL DIFFERENTIAL; PLATELET ESTIMATE, MANUAL NORMAL (130-450,000) (NORMAL); WBC MORPHOLOGY (MULTIPLE) NORMAL APPEARANCE (NORMAL)
[2021-07-18 06:42] LABS: FOLATE 21.17 ng/mL (5.90 - >24.8)
[2021-07-18] MEDS: PIPERACILLIN/TAZOBACTAM 3.375 GM in SODIUM CHLORIDE 0.9% MINIBAG 100 ML IV SCH (08:57)
[2021-07-18] MEDS: FINASTERIDE 5 MG TABLET PO SCH (08:58)
[2021-07-18] MEDS: polyethylene glycoL 3350 17 GM PACKET PO SCH (08:58)
[2021-07-18] MEDS: TAMSULOSIN 0.4 MG CAPSULE PO SCH (08:58)
[2021-07-18] MEDS: atenoloL 25 MG TABLET PO SCH (09:06)
[2021-07-18] MEDS: ENOXAPARIN 40 MG/0.4 ML SYRINGE SUBQ SCH (09:06)
[2021-07-18] MEDS: SODIUM CHLORIDE FLUSH 0.9% 10 ML SYRINGE IVP SCH (09:06)
--- NOTE | 2021-07-18 11:58 | Discharge Plan ---
Discharge Plan Problem Reviewed?: Yes Disposition: Home, Self Care Condition: Fair Prescriptions: levoFLOXacin [Levaquin] 750 mg PO DAILY #9 tablet Diet: Regular Activity Restrictions: Activity as Tolerated Shower Restrictions: No Driving Restrictions: Yes (we have asked the DMV to evaluated your safety for driving) Assistance Devices: Walker Health Concerns: You have a history of narcolepsy, prostate enlargement, and high blood pressure and has been taking a stimulant to keep you awake and not falling asleep. You were found slumped over in your car while you were at the [employer] after having driven here from [place]. You had a high fever, very low oxygen levels, were breathing fast, and your white cell count was elevated indicating infection. A chest x-ray is concerning for pneumonia. You have shared with the emergency room you not been feeling well for the last 4 days. We treated you as pneumonia and your white cell count started at 14,000 and is now down to normal at 10,000. Your fever has gone away. Your fast breathing rate has settled down to a normal breathing rate. We think you are definitely improved from your pneumonia but need to finish antibiotics for another few days. Plan of Treatment: 1. You will need to complete antibiotics for 3 more days. I am asking you to take 3 Levaquin tablets that are 250 mg. That will be 3 tablets once a day for 3 days. 2. While you were here, we found you to be a little bit forgetful. That can be normal especially since you have been sick. Or could have associated with memory loss. We have asked the DMV to evaluate you for driving safely. We have also ordered a walker for you to use for safely balancing while you walk and are tired from pneumonia. 3. Please see your primary care provider, Olivier Parisi DO, in follow-up when you return back to your hometown. I have emailed his office for his fax number so I can send the information as to why you were here. Care Goals: To have your pneumonia completely resolved. Assessment: Patient is deaf and information had to be repeated many times and it is written down. He promises to follow thru. No Smoking: If you smoke, Please STOP! Call for help.
[2021-07-18 15:07] VITALS: BP 110/69
--- NOTE | 2021-07-18 16:13 | DISCHARGE SUMMARY ---
Discharge Summary Admit Date: 07/14/21 Discharge Date: 07/18/21 Discharging Provider: Isidra Cummins MD Primary Care Provider: Olivier Parisi MD ([phone]) Code Status: Attempt Resuscitation Condition at Discharge: Fair Discharge Disposition: 01 Home, Self Care - DIAGNOSES Discharge Diagnoses with Status of Each Condition: 1. Sepsis 2. Pneumonia. Unclear if community-acquired versus aspiration 3. Prerenal azotemia 4. Benign prostatic hypertrophy 5. 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 Iron deficiency anemia 7. Narcolepsy 8. Hypertension 9. Memory loss - HPI History of Present Illness: Patient is an 86-year-old male with medical history significant for narcolepsy, BPH and hypertension. He is currently in [place] with his for the [employer]. They come from [facility]. It is reported that he was found slumped over in his car. His explains that he had gone to parked the car when they arrived the festival grounds shortly before he was found. It appears he readily came to but was intermittently/somewhat confused. Consequently EMS was called. He was noted to be febrile with a subjective temperature as high as 103F. He was brought to the ED for further evaluation. Upon arrival he was noted to have an oxygen saturation of 88% on room air. He was tachypneic with a respiratory rate of 36 and also had a temperature of 39 C. Further work-up included a CBC which showed white blood cell count of 14.6. He has crackles in the right lower lung base. Chest x-ray raise concern for pneumonia. On further inquiry the patient reports He has not been feeling well for the past 4 days. His also adds that he went to bed around 3 PM yesterday and slept for the rest of the day until today morning. At bedside he denies chest pain, abdominal pain, nausea, vomiting. He is being admitted for further treatment. - Past Medical History Cardiovascular: reports: Hypertension Neuro: reports: Other (Narcolepsy) : reports: Benign prostate hypertrophy Other Past Medical History: narcolepsy - Past Surgical History General: reports: Appendectomy - CONSULTS | PROCEDURES Procedures: Chest x-ray was without acute cardiopulmonary findings. Blood cultures were negative on July 14 and July 15 in spite of 2 fever spikes. Iron study showed iron deficiency anemia with iron 25, TIBC 175, percent saturation 14, transferrin 125. B12 levels were normal and folate levels were normal. - HOSPITAL COURSE Hospital Course: In spite of a negative chest x-ray, the patient had findings on physical examination of pneumonia in that he had crackles in the right lower lung base. He had a fever, elevated white cell count and no evidence of a UTI on urinalysis. Blood cultures were negative. He was placed on empiric antibiotic therapy for pneumonia and improved with that. Fever resolved. White cell count on admission was 14.6 and was 10.3 on discharge. He continued to have hypoxia. We prepared him for discharge on July 17 but that afternoon had continued hypoxia that we thought we could wait another day. On the day of discharge his oxygenation was now normal and he was 98% to 99% on room air. He should finish antibiotic therapy that is empiric. As such he was continued on Levaquin for 3 more days. He was a deaf, cognitively impaired elderly gentleman. He was not always able to repeat what I explained and at times needed repeat prompts. For that reason, the previous hospitalist on service has requested a DMV evaluation for his driving. He did not appear to have apnea during his stay with this. He was continued on his stimulant for diagnosis of narcolepsy. He was felt to be a fall risk. And as such was evaluated by physical therapy. He was ambulating 150 feet. We initially used a cane but he was much more stable using a walker. He had constant contact-guard assist. He had intermittent episodes of crossing the midline with his lower extremities. He required frequent verbal and visual cues. He is unsteady with navigating tight turns. As such physical therapy felt that he would benefit from continued skilled physical therapy while he was here. He was discharged with a front wheel walker. At discharge temperature was 36.6. Heart rate 63. Blood pressure 110/69. Respirations 16 and unlabored. 99% on room air. He is 5 feet 5 inches tall and weighs 72 kg. He is a pleasant, very loud speaking elderly gentleman. I think he is speaking loudly because of his deafness. He repeats his sentences, and asked multiple times "what?, What?, What?" When I speak to him. Neck is supple. No goiter or bruit. Lungs have upper airway breath sounds throughout but they are clear with good air movement. He has no crackles rhonchi wheezing or increased respiratory effort. PMI is normally placed with a systolic ejection murmur. Nonradiating. Loudest at the left lower sternal border. The abdomen is benign. The extremities have trace edema. He is able to follow two- step command and that he sits up for me, stands using the walker. Throughout his stay he is eaten about 100% of his meals. He is discharged in stable condition, greater than 30 minutes was spent coordinating discharge. I did explain to him that because of his gait ataxia, and possible memory loss, we are asking the DMV to evaluate him for continued driving. Although we treated empirically for pneumonia, I do have some concern that he may have continued fever spikes. If that is true, he should be further evaluated with that as things is echocardiogram, or evaluation for his iron deficiency anemia. I did explain to him that he has iron deficiency anemia and he denied any positive review of systems with GI complaints. He cannot remember if he has had colonoscopy. - ALLERGIES Allergies/Adverse Reactions: Allergies Allergy/AdvReac Type Severity Reaction Status Date / Time No Known Drug Allergies Allergy Verified 07/14/21 18:32 - MEDICATIONS Home Medications: Ambulatory Orders Medication Instructions Recorded Confirmed Dextroamphetamine/Amphetamine 5 mg PO 5XD PRN 07/15/21 07/15/21 [Dextroamp-Amphetamine 5 mg Tab] Finasteride [Proscar] 5 mg PO DAILY 07/15/21 07/15/21 Simvastatin [Zocor] 40 mg PO QPM 07/15/21 07/15/21 Tamsulosin HCl [Flomax] 0.8 mg PO DAILY 07/15/21 07/15/21 atenoloL [Tenormin] 25 mg PO DAILY 07/15/21 07/15/21 hydroCHLOROthiazide [Hydrodiuril] 25 mg PO DAILY 07/15/21 07/15/21 levoFLOXacin [Levaquin] 750 mg PO DAILY #9 tablet 07/18/21 - LABS Result Diagrams: 07/18/21 05:30 07/18/21 05:30 - SEPSIS Possible source of Sepsis: Pulmonary Sepsis Criteria: Recorded Temperature greater than 38.3C or Less than 36C, Recorded Respiratory Rate greater than 20, Respiratory: Increasing oxygen requirements, WBC count greater than 12,000 or less than 4000, COW TRIMMER: altered consciousness (unrelated to primary neuro pathology)
== END 2021-07-18 14:55 | disposition home or self-care (01) | DRG 871 ==
LOC: ED 18:17 → MS2 20:52
PROVIDERS: ADMIT Internal Medicine; ATTEND Specialist
DX: A41.9 Sepsis, unspecified organism (principal); J18.9 Pneumonia, unspecified organism; G93.40 Encephalopathy, unspecified; Z20.822 Contact with and (suspected) exposure to COVID-19; J69.0 Pneumonitis due to inhalation of food and vomit; C78.00 Secondary malignant neoplasm of unspecified lung; R79.89 Other specified abnormal findings of blood chemistry; N40.0 Benign prostatic hyperplasia without lower urinary tract symptoms; C61 Malignant neoplasm of prostate; D50.9 Iron deficiency anemia, unspecified; G47.419 Narcolepsy without cataplexy; I10 Essential (primary) hypertension; H91.90 Unspecified hearing loss, unspecified ear; G31.84 Mild cognitive impairment of uncertain or unknown etiology; R26.0 Ataxic gait; Z74.09 Other reduced mobility; Z91.81 History of falling; Z79.899 Other long term (current) drug therapy
CPT/HCPCS: 36415; 71045; 80048; 80053; 81001; 82607; 82746; 83540; 83605; 83735; 84466; 85025; 87040; 87631; 96374; 97116; 97161; 99284; 99285; A6250; A9270; J1650; 0202U; 87086